=== PATIENT | female | born 1955 | race American Indian/Alaskan Native ===

== ENCOUNTER 2020-09-30 17:45 | Emergency (ER) | payer MEDICAID ==
[2020-09-30 18:38] VITALS: BP 123/73
[2020-09-30 20:42] LABS: Bacteria,Urine 1+ /HPF (Negative); Bilirubin,Urine NEG (Negative); Blood,Urine SM (Negative); Color,Urine Amber (Yellow); Mucus,Urine 3+ /HPF
[2020-09-30 20:46] LABS: WBC,Urine > 182.0 /HPF (0.0-6.0)
== END 2020-10-02 20:30 | disposition home or self-care (01) ==
LOC: ED 17:45
DX: R10.9 Unspecified abdominal pain (principal); Z53.21 Procedure and treatment not carried out due to patient leaving prior to being seen by health care provider
CPT/HCPCS: 81001

== ENCOUNTER 2020-10-05 17:14 | Emergency (ER) | payer MEDICAID ==
[2020-10-05 17:41] VITALS: BP 136/82
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
[2020-10-05] MEDS ORDERED: HYDROcodone/ACETAMINOPHEN 10-325MG TAB PO ONE (20:12)
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
[2020-10-05 21:01] LABS: Bilirubin,Urine NEG (Negative); Blood,Urine NEG (Negative); Color,Urine Yellow (Yellow); Mucus,Urine FEW /HPF; Protein,Urine <15 mg/dL mg/dL (Negative)
[2020-10-05] MEDS ORDERED: LIDOCAINE-MPF (1%) 10 MG/1 ML VIAL 5 ML INFILTRATI ONE (21:33)
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
--- NOTE | 2020-10-06 10:27 | Electrocardiograph Report ---
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
== END 2020-10-05 22:37 | disposition home or self-care (01) ==
LOC: ED 17:14
DX: S20.211A Contusion of right front wall of thorax, initial encounter (principal); N89.8 Other specified noninflammatory disorders of vagina; Z20.2 Contact with and (suspected) exposure to infections with a predominantly sexual mode of transmission; H40.9 Unspecified glaucoma; G47.30 Sleep apnea, unspecified; Z98.890 Other specified postprocedural states; Y04.8XXA Assault by other bodily force, initial encounter; Y93.89 Activity, other specified; Y92.89 Other specified places as the place of occurrence of the external cause; Y99.8 Other external cause status
CPT/HCPCS: 71250; 81001; 93005; 96372; 99284; J0696